=== PATIENT | female | born 1950 | race Caucasian/White ===

== ENCOUNTER → 2022-04-01 | Outpatient (CLI) | payer BC | LOC: KOH-I 13:36 | DX: M25.551 Pain in right hip (principal); M53.3 Sacrococcygeal disorders, not elsewhere classified | CPT/HCPCS: 73721 ==

== ENCOUNTER → 2022-06-15 | Outpatient (CLI) | payer BC | LOC: MRI 09:44 | PROVIDERS: Nurse Practitioner Family | DX: M89.9 Disorder of bone, unspecified (principal); R59.0 Localized enlarged lymph nodes; I10 Essential (primary) hypertension; E78.5 Hyperlipidemia, unspecified; E03.9 Hypothyroidism, unspecified; E83.42 Hypomagnesemia | CPT/HCPCS: 36415; 73722; 80053; 80061; 83036; 83735; 84439; 84443; A9577 ==